=== PATIENT | female | born 1965 | race Caucasian/White ===

== ENCOUNTER 2019-01-26 23:52 | Emergency (ER) | payer OTHER ==
[~2019-01-26] VITALS: Ht 165.1 cm; Wt 77.0 kg
[~2019-01-26 23:52] MED LIST: ONDA4TAB14 PO; TRAM50TA2 PO
[2019-01-27 00:10] VITALS: Ht 165.1 cm; Wt 77.0 kg
[2019-01-27] MEDS ORDERED: ONDANSETRON 4 MG INJ IV STA (01:04)
[2019-01-27] MEDS ORDERED: FAMOTIDINE 20 MG INJ IV STA (01:04)
[2019-01-27] MEDS ORDERED: morphine 4 MG/ML VIAL IV STA (01:04)
[2019-01-27] MEDS ORDERED: SOD CHLORIDE 0.9% 1,000 ML IV STA (01:04)
--- NOTE | 2019-01-27 02:22 | ERD ---
ER Documentation Chief Complaint Chief Complaint C/O EPIGASTRIC AP W/ VOMITING SINCE 5PM HPI This is a 53-year-old female with complaint of epigastric abdominal pain and vomiting since 5 PM. Pain is mild to moderate in intensity with no exacerbating relieving factors. It happened after she had a bag of peanuts. ROS All systems reviewed and are negative except as per history of present illness. Medications Home Meds Active Scripts Ondansetron (Ondansetron Odt) 4 Mg Tab.rapdis, 4 MG PO Q6H PRN for NAUSEA AND/OR VOMITING, #10 TAB Prov:WOOD MIRZA 01/27/19 Tramadol HCl (Tramadol HCl) 50 Mg Tablet, 50 MG PO Q4 PRN for PAIN, #20 TAB Prov:WOOD MIRZA 01/27/19 Allergies Allergies: Coded Allergies: No Known Allergy (Unverified , 01/27/19) PMhx/Soc Medical and Surgical Hx: pt denies Medical Hx, pt denies Surgical Hx Hx Alcohol Use: No Hx Substance Use: No Hx Tobacco Use: No Smoking Status: Never smoker Physical Exam Vitals Vital Signs Date Temp Pulse Resp B/P (MAP) Pulse Ox O2 O2 Flow FiO2 Time Delivery Rate 01/27/19 99.0 98 20 148/81 99 Room Air 01:05 (103) 01/27/19 99.0 71 20 151/72 99 00:10 (98) Physical Exam Const: No acute distress Head: Atraumatic Eyes: Normal Conjunctiva ENT: Normal External Ears, Nose and Mouth. Neck: Full range of motion. No meningismus. Resp: Clear to auscultation bilaterally Cardio: Regular rate and rhythm, no murmurs Abd: Soft, non tender, non distended. Normal bowel sounds Skin: No petechiae or rashes Back: No midline or flank tenderness Ext: No cyanosis, or edema Neur: Awake and alert Psych: Normal Mood and Affect Result Diagram: 01/27/1911201/27/19112 Results 24 hrs Laboratory Tests Test 01/27/19 01:13 01/27/19 01:24 White Blood Count 13.5 10^3/ul Red Blood Count 4.33 10^6/ul Hemoglobin 13.0 g/dl Hematocrit 39.4 % Mean Corpuscular Volume 91.0 fl Mean Corpuscular Hemoglobin 30.0 pg Mean Corpuscular Hemoglobin Concent 33.0 g/dl Red Cell Distribution Width 13.2 % Platelet Count 287 10^3/UL Mean Platelet Volume 9.3 fl Immature Granulocytes % 0.300 % Neutrophils % 88.0 % Lymphocytes % 9.1 % Monocytes % 2.4 % Eosinophils % 0.1 % Basophils % 0.1 % Nucleated Red Blood Cells % 0.0 /100WBC Immature Granulocytes # 0.040 10^3/ul Neutrophils # 11.9 10^3/ul Lymphocytes # 1.2 10^3/ul Monocytes # 0.3 10^3/ul Eosinophils # 0.0 10^3/ul Basophils # 0.0 10^3/ul Nucleated Red Blood Cells # 0.0 10^3/ul Sodium Level 139 mmol/L Potassium Level 4.0 mmol/L Chloride Level 101 mmol/L Carbon Dioxide Level 28 mmol/L Anion Gap 10 Blood Urea Nitrogen 13 mg/dl Creatinine 0.58 mg/dl Est Glomerular Filtrat Rate mL/min > 60 mL/min Glucose Level 134 mg/dl Calcium Level 9.0 mg/dl Total Bilirubin 0.5 mg/dl Direct Bilirubin 0.00 mg/dl Indirect Bilirubin 0.5 mg/dl Aspartate Amino Transf (AST/SGOT) 25 IU/L Alanine Aminotransferase (ALT/SGPT) 27 IU/L Alkaline Phosphatase 90 IU/L Total Protein 8.0 g/dl Albumin 4.4 g/dl Globulin 3.60 g/dl Albumin/Globulin Ratio 1.22 Lipase 62 U/L Urine Color YELLOW Urine Clarity CLOUDY Urine pH 8.0 Urine Specific [place] 1.020 Urine Ketones NEGATIVE mg/dL Urine Nitrite NEGATIVE mg/dL Urine Bilirubin NEGATIVE mg/dL Urine Urobilinogen NEGATIVE mg/dL Urine Leukocyte Esterase NEGATIVE Gerardo/ul Urine Microscopic RBC 1 /HPF Urine Microscopic WBC 0 /HPF Urine Amorphous Crystals FEW /HPF Urine Mucus FEW /HPF Urine Hemoglobin NEGATIVE mg/dL Urine Glucose NEGATIVE mg/dL Urine Total Protein 1+ mg/dl Current Medications Medications Dose Sig/Henny Start Time Status Last (Trade) Ordered Route PRN Stop Time Admin Dose Reason Admin Sodium 1,000 ml @ Q1H STAT 01/27/19 DC 01/27/19 Chloride 1,000 mls/hr IV 01:04 01/27/19 01:58 02:03 Morphine 4 mg ONCE STAT 01/27/19 DC 01/27/19 Sulfate IV 01:04 01/27/19 01:58 (morphine) 01:05 Ondansetron 4 mg ONCE STAT 01/27/19 DC 01/27/19 HCl (Zofran IV 01:04 01/27/19 01:58 Inj) 01:05 Famotidine 20 mg ONCE STAT 01/27/19 DC 01/27/19 (Pepcid Iv) IV 01:04 01/27/19 01:58 01:06 Procedures/MDM Medical decision making: Patient's gastrointestinal symptoms have stabilized while in the department. No evidence of severe dehydration, sepsis, or surgical abdomen. Extensive discussion with family and patient that occult disease cannot be ruled out. 8 hour recheck for repeat abdominal exam is planned. Departure Diagnosis: Primary Impression: Abdominal pain Abdominal location: unspecified location Qualified Codes: R10.9 - Unspecified abdominal pain Condition: Stable Patient Instructions: Gallstones WOOD MIRZA Jan 27, 2019 02:22
[2019-01-27] MEDS ORDERED: KETOROLAC 30 MG INJ IV STA (02:34)
[2019-01-27 03:25] VITALS: BP 126/71; PULSE 65; RESP 16
== END 2019-01-27 03:44 | disposition home or self-care (01) ==
LOC: E/R 23:52
DX: R10.13 Epigastric pain (principal); R11.10 Vomiting, unspecified
CPT/HCPCS: 36415; 76705; 80053; 81001; 83690; 85025; 96374; 96375; J1885; J2270; J2405; J7030; Z7502; Z7610